=== PATIENT | female | born 1995 | race Caucasian/White ===

== ENCOUNTER 2024-06-10 16:43 | Outpatient (CLI) | payer SELFPAY ==
--- NOTE | 2024-06-10 17:22 | XR_ITS ---
WS: [id number] Flat, upright and right lateral decubitus of the abdomen, 06/10/2024 Clinical Data: abdominal pain Comparison: KUB, 02/12/2007. Findings: No free air is present. There is air in the stomach, small bowel and colon. There is no evidence of o bstruction. No abnormal intra-abdominal masses or calcifications are seen. There is a slight dextrosc oliosis of the lumbar spine. XR/XR abdomen 3V [id number] Impression: Negative abdomen series.
== END 2024-06-10 16:44 | disposition home or self-care (01) ==
PROVIDERS: Family Provider Pediatrics Adolescent Medicine; PCP Pediatrics Adolescent Medicine; Visit Provider Pediatrics Adolescent Medicine
DX: R10.9 Unspecified abdominal pain (principal)
CPT/HCPCS: 74021; 81000; 87086

== ENCOUNTER 2024-06-24 00:40 | Emergency (ER) | payer OTHER, SELFPAY ==
[2024-06-24] VITALS (26 sets, daily range): BP systolic 97–135; BP diastolic 44–106; PULSE 50–72; RESP 12–20; TEMP 36.3; O2SAT 96–100; BMI 24.7
--- NOTE | 2024-06-24 01:06 | CTR_ITS ---
PROCEDURE INFORMATION: Exam: CT Abdomen And Pelvis With Contrast Exam date and time: 06/24/2024 2:26 AM Age: 29 years old Clinical indication: Abdominal pain; Generalized; Additional info: Abdominal pain, constipation TECHNIQUE: Imaging protocol: Computed tomography of the abdomen and pelvis with contrast. Radiation optimization: All CT scans at this facility use at least one of these dose optimization techniques: automated exposure control; mA and/or kV adjustment per patient size (includes targeted exams where dose is matched to clinical indication); or iterative reconstruction. Contrast material: OMNI 350; Contrast volume: 100 ml; Contrast route: INTRAVENOUS (IV); COMPARISON: CR XR abdomen 3V [id number] 06/10/2024 5:32 PM RADIATION DOSE METRICS: Total DLP (mGy-cm): 352.73 FINDINGS: Lungs: Lung bases are clear as visualized. Liver: There is diffuse fatty infiltration of the liver. The liver is otherwise normal. Gallbladder and biliary ducts: Normal. No calcified stones. No ductal dilation. Pancreas: Normal. No ductal dilation. Spleen: Normal. No splenomegaly. Adrenal glands: Normal. No mass. Kidneys and ureters: Normal. No hydronephrosis. Stomach and bowel: Unremarkable. No obstruction. No mucosal thickening. Appendix: No evidence of appendicitis. Intraperitoneal space: Unremarkable. No free air. No significant fluid collection. Vasculature: Unremarkable. No abdominal aortic aneurysm. Lymph nodes: Unremarkable. No enlarged lymph nodes. Urinary bladder: Unremarkable as visualized. Reproductive: Unremarkable as visualized. Bones/joints: Unremarkable. No acute fracture. Soft tissues: Unremarkable. CT/CT abdomen pelvis w con* [id number] IMPRESSION: 1. Mild fatty infiltration of the liver.
--- NOTE | 2024-06-24 01:07 | W.ED.ABDPA2 ---
Documented by User: MARK Garcia 06/24/24 01:14 HPI - Abdominal Pain General: Chief Complaint: Abdominal Pain Stated Complaint: N\Cant Poop\ABD Pain Time Seen by Provider: 06/24/24 00:59 Source: patient and family (mother) Mode of arrival: ambulatory Limitations: no limitations History of Present Illness: Patient is a 29-year-old female presents to ED today along with her mother for complaints of abdominal pain as well as constipation. Patient states she has not had a normal bowel movement in many weeks. She was reportedly seen at our walk-in clinic on 06/10 with complaints of abdominal pain and constipation. Patient states since then she has been doing [id number] laxatives/stool softeners and has had very small volume stools although did have 2 bowel movements over the past 48 hours that were fairly normal in volume. Patient reportedly had an x-ray at that visit. X-ray was interpreted as normal. Patient states her abdominal pain has continued to worsen. She has had severe pain over the past 48 hours. Mother fears this could be something other than constipation. She was reportedly at her mother's house all day today complaining of abdominal pain. They delaying medical evaluation because her insurance reportedly did not kick in until 06/24/24. No previous abdominal surgeries. She states she intermittently gets episodes that accompany her abdominal pain consisting of sweating/diaphoresis, racing heart, nauseous. She does have a history of anxiety. Onset (ago): week(s) Pain Consistency: constant Location: Diffuse Severity: severe Quality: cramping Radiation: none Migration to: no migration Exacerbating factors: nothing Relieving factors: nothing Associated Symptoms: Reports constipation, GI cramping and nausea; Denies chills, dysuria, fever(s), hematochezia, hematemesis, melena and vomiting Related Data Date of Last Menstrual Period: 06/23/24 Previous Rx's Medication Instructions Recorded glycerin (adult) 1 supp CO DAILY constipation #12 ea 06/10/24 pantoprazole 40 mg tablet,delayed 40 mg PO BID 30 days #60 tabs 06/24/24 release Allergies Allergy/AdvReac Type Severity Reaction Status Date / Time No Known Allergies Allergy Verified 06/24/24 01:07 Review of Systems Const: Denies: fever(s), chills, body aches, fatigue or malaise Card: Denies: chest pain Resp: Denies: dyspnea GI: Reports: abdominal pain, nausea, constipation and GI cramping; Denies: vomiting, hematemesis, rectal pain, hematochezia or melena : Denies: flank pain, difficulty voiding, dysuria, urinary frequency, urinary urgency or urinary hesitancy Musc: Denies: neck pain, back pain, extremity pain, extremity swelling, joint pain or joint swelling Skin/Breast: Denies: rash Neuro: Denies: headache(s) PFSH ED PFSH: Social History Smoking and tobacco/nicotine status: unknown if used tobacco/nicotine Female Reproductive History: Date of last menstrual period: 06/23/24 Physical Exam Const: COMMON NORMALS: average body habitus, patient oriented x3, no limitations, healthy appearing, alert and well nourished GENERAL APPEARANCE: cooperative ORIENTATION/CONSCIOUSNESS: Yes awake, Yes oriented to person, Yes oriented to place and Yes oriented to time Eye: COMMON NORMALS: no scleral icterus Neck/C-Spine: COMMON NORMALS: no lymphadenopathy GENERAL: Yes normal visual inspection Resp: COMMON NORMALS: normal respiratory effort and clear to auscultation bilaterally AUSCULTATION: clear to auscultation bilaterally Cardio: COMMON NORMALS: regular rate and regular rhythm RATE: regular rate RHYTHM: regular rhythm GI: COMMON NORMALS: Normal to inspection, nondistended, normoactive bowel sounds present, No hepatosplenomegaly present and no masses INSPECTION: Yes normal to inspection AUSCULTATION: Yes normoactive bowel sounds PALPATION: Yes Tenderness to palpation present (GI), Yes Guarding due to palpation present (GI), No Rigid due to palpation and Yes No hepatosplenomegaly present : COMMON NORMALS: Yes no CVA tenderness BLADDER/KIDNEY EXAM: Yes no CVA tenderness Back/Pelvis: COMMON NORMALS: no CVA tenderness Extremity: GENERAL: Yes normal exam except as noted Neuro: COMMON NORMALS: patient oriented x3, moves all extremities, no focal motor deficits and no sensory deficits noted SENSORIUM/ORIENTATION: Yes alert, Yes oriented to person, Yes oriented to place and Yes oriented to time Skin: COMMON NORMALS: no rashes or lesions noted GENERAL SKIN EXAM: no rashes or lesions noted Course Vital Signs: Vital signs: Vital Signs Temperature 97.3 F L 06/24/24 00:58 Pulse Rate 68 06/24/24 09:16 Respiratory Rate 14 06/24/24 06:45 Blood Pressure 109/82 06/24/24 09:16 Pulse Oximetry 96 06/24/24 09:16 Oxygen Delivery Me thod Room Air 06/24/24 00:58 MDM - Abdominal Pain Lab Data 06/24/24 01:19 06/24/24 01:19 Labs/Radiology: Radiology Impressions Abdomen/Pelvis CT 06/24/24 01:06 IMPRESSION: 1. Mild fatty infiltration of the liver. Laboratory Results WBC 11.50 10^3/uL (3.29-11.43) H 06/24/24 01:19 RBC 4.30 10^6/uL (3.85-5.65) 06/24/24 01:19 Hgb 13.40 g/dL (11.27-16.99) 06/24/24 01:19 Hct 39.0 % (36-47) 06/24/24 01:19 MCV 90.7 fl (85-98) 06/24/24 01:19 MCH 31.2 pg (27-33) 06/24/24 01:19 MCHC 34.4 g/dL (30-55) 06/24/24 01:19 RDW 12.1 % (12.1-15.1) 06/24/24 01:19 Plt Count 354 10^3/cmm (157-399) 06/24/24 01:19 MPV 9.1 fL (7.4-10.4) 06/24/24 01:19 Neut % (Auto) 43.6 % 06/24/24 01:19 Lymph % (Auto) 46.3 % 06/24/24 01:19 Alpine % (Auto) 7.2 % 06/24/24 01:19 Eos % (Auto) 2.3 % 06/24/24 01:19 Baso % (Auto) 0.3 % 06/24/24 01:19 Neut # (Auto) 5.03 10^3/uL (1.8-7.7) 06/24/24 01:19 Lymph # (Auto) 5.3 10^3/uL (0.8-4.8) H 06/24/24 01:19 [place]pine # (Auto) 0.8 10^3/uL (0.2-0.9) 06/24/24 01:19 Eos # (Auto) 0.3 10^3/uL (0.0-0.8) 06/24/24 01:19 Baso # (Auto) 0.0 10^3/uL (0.0-0.1) 06/24/24 01:19 Nucleated RBC % (auto) 0 % 06/24/24 01:19 Nucleated RBCs # 0.0 /100WBC 06/24/24 01:19 Sodium 140 mmol/L (136-145) 06/24/24 01:19 Potassium 3.5 mmol/L (3.5-5.1) 06/24/24 01:19 Chloride 103 mmol/L (98-107) 06/24/24 01:19 Carbon Dioxide 24 mmol/L (22-29) 06/24/24 01:19 Anion Gap 16.5 (5-19) 06/24/24 01:19 BUN 8 mg/dL (6-20) 06/24/24 01:19 Creatinine 0.6 mg/dL (0.5-0.9) 06/24/24 01:19 GFR Calculation 119.9 mL/min (90-130) 06/24/24 01:19 Glucose 108 mg/dL (65-115) 06/24/24 01:19 Calculated Osmolality 289 mOsm/kg (285-295) 06/24/24 01:19 Calcium 9.6 mg/dL (8.5-10.5) 06/24/24 01:19 Total Bilirubin 0.6 mg/dL (0.15-1.2) 06/24/24 01:19 AST 16 U/L (0-32) 06/24/24 01:19 ALT 17 U/L (0-33) 06/24/24 01:19 Alkaline Phosphatase 56 U/L (35-105) 06/24/24 01:19 Total Protein 7.1 g/dL (6.6-8.7) 06/24/24 01:19 Albumin 4.3 g/dL (3.5-5.2) 06/24/24 01:19 Globulin 2.8 g/dL (1.3-4.6) 06/24/24 01:19 Lipase 22 U/L (13-60) 06/24/24 01:19 HCG, Qual Negative (Negative) 06/24/24 01:19 Urine Color Yellow (Yellow) 06/24/24 03:24 Urine Appearance Clear (CLEAR) 06/24/24 03:24 Urine pH 6.0 (5-7) 06/24/24 03:24 Ur Specific [place] >= 1.099 (1.005-1.030) H 06/24/24 03:24 Urine Protein Trace (Negative) A 06/24/24 03:24 Urine Glucose (UA) Negative (Normal) 06/24/24 03:24 Urine Ketones Negative (Negative) 06/24/24 03:24 Urine Blood Negative (Negative) 06/24/24 03:24 Urine Nitrate Negative (Negative) 06/24/24 03:24 Urine Bilirubin Negative (Negative) 06/24/24 03:24 Urine Urobilinogen 1.0 mg/dL (Negative) 06/24/24 03:24 Ur Leukocyte Esterase Negative (Negative) 06/24/24 03:24 Urine RBC 0-4 /hpf (0-2) H 06/24/24 03:24 Urine WBC None /hpf (0-5) 06/24/24 03:24 Ur Squamous Epith Cells 5-10 /hpf (0-5) H 06/24/24 03:24 Amorphous Sediment Not Reportable 06/24/24 03:24 Urine Bacteria None /hpf (NONE) 06/24/24 03:24 Discharge Plan Discharge Patient Disposition: Home Clinical Impression: Abdominal pain, GERD (gastroesophageal reflux disease) Condition: Stable Prescriptions: New pantoprazole 40 mg tablet,delayed release (DR/EC) 40 mg PO BID 30 Days Qty: 60 0RF Rx Instructions: 1 tablet twice daily x 10 days then 1 daily Discontinued famotidine [Acid Financial Analysis Consultant (famotidine)] 20 mg tablet 20 mg PO DAILY No Action glycerin (adult) Suppository 1 supp CO DAILY Qty: 12 0RF Rx Instructions: retain in rectum for 15-60min Discharge Orders: Discharge ED (Routine); Ordered 06/24/24 Ordered By: Lukas Matthews Patient Instructions: Abdominal Pain - Adult, Diet for Stomach Ulcers and Gastritis (ED), GERD (Gastroesophageal Reflux Disease) (ED), Abdominal Pain (ED), Opioid Safety, Pain Management Activity Restrictions/Additional Instructions: Thank you for choosing [facility] for your healthcare needs today. It is very important that you follow up as instructed or that you return to the Emergency Department should you have concerns or if your condition changes or worsens in any way. Case management make urgent sorry to follow-up with general surgery for your persistent abdominal pain. Stand Alone Forms: Work/School Release Sign Out Sign Out Data: Patient Sign Out occurred on 06/24/24 at 06:18. Patient's care was discussed, and care was transferred from MARK Garcia to Lukas Matthews DO. Coding Level of Care Code ED Produce Wrapper for Chg Fwd Documented by User: Lukas Matthews DO 06/24/24 11:02 HPI - Abdominal Pain General: Chief Complaint: Abdominal Pain Stated Complaint: N\Cant Poop\ABD Pain Time Seen by Provider: 06/24/24 00:59 Related Data Previous Rx's Medication Instructions Recorded glycerin (adult) 1 supp CO DAILY constipation #12 ea 06/10/24 pantoprazole 40 mg tablet,delayed 40 mg PO BID 30 days #60 tabs 06/24/24 release Allergies Allergy/AdvReac Type Severity Reaction Status Date / Time No Known Allergies Allergy Verified 06/24/24 01:07 [facility] ED [facility]: Social History Smoking and tobacco/nicotine status: unknown if used tobacco/nicotine Course Vital Signs: Vital signs: Vital Signs Temperature 97.3 F L 06/24/24 00:58 Pulse Rate 68 06/24/24 09:16 Respiratory Rate 14 06/24/24 06:45 Blood Pressure 109/82 06/24/24 09:16 Pulse Oximetry 96 06/24/24 09:16 Oxygen Delivery Me thod Room Air 06/24/24 00:58 MDM - Abdominal Pain Medical Decision Making Care assumed at change of shift CT did not show anything acute white count is 11 5 but no significant left shift. There is no significant amount of retained stool in the colon. No other intra-abdominal pathology. While her urine is concentrated it does not show any signs of infection. Beta-hCG was negative. Discharge patient home changed from famotidine to pantoprazole. She likely will require further evaluation since been an ongoing issue. Will refer her to general surgery for consideration of endoscopy. Lab Data 06/24/24 01:19 06/24/24 01:19 Labs/Radiology: Radiology Impressions Abdomen/Pelvis CT 06/24/24 01:06 IMPRESSION: 1. Mild fatty infiltration of the liver. Laboratory Results WBC 11.50 10^3/uL (3.29-11.43) H 06/24/24 01:19 RBC 4.30 10^6/uL (3.85-5.65) 06/24/24 01:19 Hgb 13.40 g/dL (11.27-16.99) 06/24/24 01:19 Hct 39.0 % (36-47) 06/24/24 01:19 MCV 90.7 fl (85-98) 06/24/24 01:19 MCH 31.2 pg (27-33) 06/24/24 01:19 MCHC 34.4 g/dL (30-55) 06/24/24 01:19 RDW 12.1 % (12.1-15.1) 06/24/24 01:19 Plt Count 354 10^3/cmm (157-399) 06/24/24 01:19 MPV 9.1 fL (7.4-10.4) 06/24/24 01:19 Neut % (Auto) 43.6 % 06/24/24 01:19 Lymph % (Auto) 46.3 % 06/24/24 01:19 [place] % (Auto) 7.2 % 06/24/24 01:19 Eos % (Auto) 2.3 % 06/24/24 01:19 Baso % (Auto) 0.3 % 06/24/24 01:19 Neut # (Auto) 5.03 10^3/uL (1.8-7.7) 06/24/24 01:19 Lymph # (Auto) 5.3 10^3/uL (0.8-4.8) H 06/24/24 01:19 [place]pine # (Auto) 0.8 10^3/uL (0.2-0.9) 06/24/24 01:19 Eos # (Auto) 0.3 10^3/uL (0.0-0.8) 06/24/24 01:19 Baso # (Auto) 0.0 10^3/uL (0.0-0.1) 06/24/24 01:19 Nucleated RBC % (auto) 0 % 06/24/24 01:19 Nucleated RBCs # 0.0 /100WBC 06/24/24 01:19 Sodium 140 mmol/L (136-145) 06/24/24 01:19 Potassium 3.5 mmol/L (3.5-5.1) 06/24/24 01:19 Chloride 103 mmol/L (98-107) 06/24/24 01:19 Carbon Dioxide 24 mmol/L (22-29) 06/24/24 01:19 Anion Gap 16.5 (5-19) 06/24/24 01:19 BUN 8 mg/dL (6-20) 06/24/24 01:19 Creatinine 0.6 mg/dL (0.5-0.9) 06/24/24 01:19 GFR Calculation 119.9 mL/min (90-130) 06/24/24 01:19 Glucose 108 mg/dL (65-115) 06/24/24 01:19 Calculated Osmolality 289 mOsm/kg (285-295) 06/24/24 01:19 Calcium 9.6 mg/dL (8.5-10.5) 06/24/24 01:19 Total Bilirubin 0.6 mg/dL (0.15-1.2) 06/24/24 01:19 AST 16 U/L (0-32) 06/24/24 01:19 ALT 17 U/L (0-33) 06/24/24 01:19 Alkaline Phosphatase 56 U/L (35-105) 06/24/24 01:19 Total Protein 7.1 g/dL (6.6-8.7) 06/24/24 01:19 Albumin 4.3 g/dL (3.5-5.2) 06/24/24 01:19 Globulin 2.8 g/dL (1.3-4.6) 06/24/24 01:19 Lipase 22 U/L (13-60) 06/24/24 01:19 HCG, Qual Negative (Negative) 06/24/24 01:19 Urine Color Yellow (Yellow) 06/24/24 03:24 Urine Appearance Clear (CLEAR) 06/24/24 03:24 Urine pH 6.0 (5-7) 06/24/24 03:24 Ur Specific [place] >= 1.099 (1.005-1.030) H 06/24/24 03:24 Urine Protein Trace (Negative) A 06/24/24 03:24 Urine Glucose (UA) Negative (Normal) 06/24/24 03:24 Urine Ketones Negative (Negative) 06/24/24 03:24 Urine Blood Negative (Negative) 06/24/24 03:24 Urine Nitrate Negative (Negative) 06/24/24 03:24 Urine Bilirubin Negative (Negative) 06/24/24 03:24 Urine Urobilinogen 1.0 mg/dL (Negative) 06/24/24 03:24 Ur Leukocyte Esterase Negative (Negative) 06/24/24 03:24 Urine RBC 0-4 /hpf (0-2) H 06/24/24 03:24 Urine WBC None /hpf (0-5) 06/24/24 03:24 Ur Squamous Epith Cells 5-10 /hpf (0-5) H 06/24/24 03:24 Amorphous Sediment Not Reportable 06/24/24 03:24 Urine Bacteria None /hpf (NONE) 06/24/24 03:24 All radiology interpretation(s) finalized by discharge Discharge Plan Discharge Patient Disposition: Home Clinical Impression: Abdominal pain, GERD (gastroesophageal reflux disease) Condition: Stable Prescriptions: New pantoprazole 40 mg tablet,delayed release (DR/EC) 40 mg PO BID 30 Days Qty: 60 0RF Rx Instructions: 1 tablet twice daily x 10 days then 1 daily Discontinued famotidine [Acid Financial Analysis Consultant (famotidine)] 20 mg tablet 20 mg PO DAILY No Action glycerin (adult) Suppository 1 supp CO DAILY Qty: 12 0RF Rx Instructions: retain in rectum for 15-60min Discharge Orders: Discharge ED (Routine); Ordered 06/24/24 Ordered By: Lukas Matthews Patient Instructions: Abdominal Pain - Adult, Diet for Stomach Ulcers and Gastritis (ED), GERD (Gastroesophageal Reflux Disease) (ED), Abdominal Pain (ED), Opioid Safety, Pain Management Activity Restrictions/Additional Instructions: Thank you for choosing [facility] for your healthcare needs today. It is very important that you follow up as instructed or that you return to the Emergency Department should you have concerns or if your condition changes or worsens in any way. Case management make urgent sorry to follow-up with general surgery for your persistent abdominal pain. Stand Alone Forms: Work/School Release Sign Out Sign Out Data: Patient Sign Out occurred on 06/24/24 at 06:18. Patient's care was discussed, and care was transferred from MARK Garcia to Lukas Matthews DO. Coding Level of Care Code ED Produce Wrapper for Daniel Truong
[2024-06-24 01:24] LABS: Basophils % 0.3 %; Eosinophils # 0.3 10^3/uL (0.0-0.8); Eosinophils % 2.3 %; Lymphocytes # 5.3 10^3/uL (0.8-4.8); Lymphocytes % 46.3 %; Mean Corpuscular HGB Conc 34.4 g/dL (30-55); Mean Corpuscular Hemoglobin 31.2 pg (27-33); Mean Corpuscular Volume 90.7 fl (85-98); Mean Platelet Volume 9.1 fL (7.4-10.4); Monocytes # 0.8 10^3/uL (0.2-0.9); Monocytes % 7.2 %; Neutrophils # 5.03 10^3/uL (1.8-7.7); Neutrophils % 43.6 %; Nucleated Red Blood Cells % 0 %; Platelet Count 354 10^3/cmm (157-399); Red Cell Distribution Width 12.1 % (12.1-15.1)
[2024-06-24 01:42] LABS: Alanine Aminotransferase 17 U/L (0-33); Albumin Level 4.3 g/dL (3.5-5.2); Alkaline Phosphatase 56 U/L (35-105); Anion Gap 16.5 (5-19); Aspartate Amino Transferase 16 U/L (0-32); Blood Urea Nitrogen 8 mg/dL (6-20); Calcium 9.6 mg/dL (8.5-10.5); Carbon Dioxide 24 mmol/L (22-29); Chloride 103 mmol/L (98-107); Creatinine Clr Calc Pharmacy 111.9303; Globulin 2.8 g/dL (1.3-4.6); Glomerular Filtration Rate 119.9 mL/min (90-130); Glucose 108 mg/dL (65-115); Lipase 22 U/L (13-60); Osmolality Calculated 289 mOsm/kg (285-295); Potassium 3.5 mmol/L (3.5-5.1); Sodium 140 mmol/L (136-145); Total Bilirubin 0.6 mg/dL (0.15-1.2); Total Protein 7.1 g/dL (6.6-8.7)
[2024-06-24 01:45] LABS: HCG, Serum Qual Negative (Negative)
[2024-06-24] MEDS: iohexol 350 mg/mL 500 mL Btl (per mL) IV (02:29)
[2024-06-24 03:37] LABS: Bilirubin Urine Negative (Negative); Blood Urine Negative (Negative); Glucose Urine UA Negative (Normal); Ketones Urine Negative (Negative); Leukocyte Esterase Urine Negative (Negative); Nitrate Urine Negative (Negative); Protein Urine Trace (Negative); Urine Appearance Clear (CLEAR); Urine Color Yellow (Yellow)
[2024-06-24 04:00] LABS: Specific Gravity, Urine >= 1.099 (1.005-1.030); UA Manual Slide Review YES
[2024-06-24 04:05] LABS: Add Urine Microscopic? YES; RBC Urine 0-4 /hpf (0-2)
--- NOTE | 2024-06-24 09:17 | PC.NURSE ---
Discharge delayed d/t family/pt requesting to speak to ED physician.
--- NOTE | 2024-06-25 10:45 | DCPLANNER ---
messaged gen surg for er f/u
== END 2024-06-24 09:18 | disposition home or self-care (01) ==
PROVIDERS: Physician Assistant; Emergency Provider Family Medicine
DX: R10.9 Unspecified abdominal pain (principal); K21.9 Gastro-esophageal reflux disease without esophagitis
CPT/HCPCS: 74177; 80053; 81001; 83690; 84703; 85025; 99285